=== PATIENT | male | born 1990 | race Caucasian/White ===

== ENCOUNTER 2016-08-02 19:21 | Emergency (ER) | payer SELFPAY ==
[~2016-08-02] VITALS: Ht 188 cm; Wt 63.6 kg
[2016-08-02 19:25] VITALS: TEMP 99
[2016-08-02] MEDS ORDERED: DOXYCYCLINE 10100 MG PO (19:58)
[2016-08-02 20:06] VITALS: BP 141/82; PULSE 104
== END 2016-08-02 20:06 | disposition home or self-care (01) ==
LOC: COL.ER 19:21
DX: L03.116 Cellulitis of left lower limb (principal)